=== PATIENT | female | born 1940 | race Caucasian/White ===

== ENCOUNTER 2018-09-17 17:55 | Inpatient (IN) | payer MEDICARE ==
[2018-09-17 18:43] LABS: % BASOPHILS 0.6 % (0.0-2.0); % EOSINOPHILS 2.5 % (0.0-5.0); % LYMPHOCYTES 27.7 % (20.0-50.0); % MONOCYTES 9.2 % (2.0-10.0); EOSINOPHILE ABSOLUTE 0.2 Th/cmm (0.1-0.4); HEMATOCRIT 43.5 % (41.0-60); HEMOGLOBIN 14.4 gm/dL (12-16); LYMPHOCYTE ABSOLUTE 1.7 Th/cmm (1.5-3.0); MEAN CELL VOLUME 88.6 fl (81-100); MEAN CORPUSCULAR HEMOGLOBIN 29.3 pg (27.0-31.0); MEAN PLATELET VOLUME 9.3 fl; MONOCYTE ABSOLUTE 0.6 Th/cmm (0.3-1.0); NEUTROPHILE ABSOLUTE 3.6 Th/cmm (1.8-8.0); PLATELET COUNT 259 Th/cmm (150-400); RED BLOOD COUNT 4.91 Mil/cmm (3.80-5.20); WHITE BLOOD COUNT 6.1 Th/cmm (4.8-10.8)
[2018-09-17 18:59] LABS: INR 1.03 (0.5-1.4); PROTHROMBIN TIME (TEST) 10.7 SECONDS (9.5-11.5)
[2018-09-17 19:02] LABS: ALB/GLOB RATIO 1.7 (1.0-1.8); ALBUMIN 4.3 gm/dL (3.7-5.3); ALKALINE PHOSPHATASE 82 U/L (34-104); ANION GAP 12.5 (7.0-16.0); BILIRUBIN,TOTAL 0.5 mg/dL (0.3-1.0); BUN - UREA NITROGEN 15 mg/dL (7-25); CALCIUM SERUM 9.4 mg/dL (8.6-10.3); CARBON DIOXIDE 25.2 mEq/L (21.0-31.0); CHLORIDE 105 mEq/L (98-107); CREATININE - SERUM 0.8 mg/dL (0.6-1.2); GLUCOSE 101 mg/dL (70-105); POTASSIUM SERUM 3.7 mEq/L (3.5-5.1); SGOT 18 U/L (13-39); SGPT/ALT 14 U/L (7-52); SODIUM SERUM 139 mEq/L (136-145); TOTAL PROTEIN,SERUM 6.8 gm/dL (6.0-8.3)
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
[2018-09-17] MEDS ORDERED: Maalox 30 mL Cup PO PRN (21:51)
[2018-09-17 22:02] VITALS: BP 133/74
[2018-09-17] MEDS ORDERED: Acetaminophen 500 MG TAB PO PRN (22:02)
[2018-09-17 22:33] LABS: CHOLESTEROL 273 mg/dL (<200); HDL -HIGH DENSITY LIPOPROTEIN 48 mg/dL (23-92); TRIGLYCERIDES 159 mg/dL (<150)
--- NOTE | 2018-09-18 08:38 | Diagnostic Imaging Report ---
CHEST X-RAY: AP view INDICATION: Cough COMPARISON: None FINDINGS: Chronic lung changes are noted. Suboptimal lung volumes are noted. No focal consolidation or effusions. Heart is at the upper limits of normal in size. Tortuous aorta is noted. Degenerative changes of the spine are noted. IMPRESSION: Chronic lung changes with no focal consolidation identified. Tortuous aorta.
[2018-09-18] MEDS: Multivitamin Tab PO SCH (10:23)
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
[2018-09-18] MEDS ORDERED: Non-Formulary Item 1 EA (Temazepam [Restoril] 30 MG) PO SCH (21:00)
--- NOTE | 2018-09-18 21:26 | History and Physical ---
History of Present Illness - HPI Chief Complaint: agitation HPI: This is a 78 year old female admitted to geropsych unit for 1 day history of agitation. Vital Signs: Last Vital Signs Temp 97.2 F 09/18/18 06:12 Pulse 111 09/18/18 06:12 Resp 20 09/18/18 12:57 BP 123/68 09/18/18 06:12 Pulse Ox 96 09/18/18 06:12 Past Medical History Other History: dementia Family Medical History - Family Member Mother History Unknown: Yes Ethnicity: Unknown Living Status: Unknown Hx Family Cancer: (Unknown) Hx Family Coronary Artery Disease: (unknwon) Hx Family Congestive Heart Failure: (unknown) Hx Family Hypertension: (unknown) Hx Family Stroke: (unknown) Hx Family Diabetes: (unknown) Hx Family Seizures: (unknwon) Hx Family Dementia: (unknown) Hx Family AIDS: (unknown) Hx Family HIV: No Hx Family COPD: (unknown) Hx Family Hepatitis: (unknown) Hx Family Psychiatric Problems: (unknown) Hx Family Tuberculosis: (unknown) Social History Smoke: No Alcohol: None Drugs: None Lives: Snf - Medications Home Medications: Home Medication Medication Instructions Recorded Type Acetaminophen [Tylenol Extra 500 mg PO Q6HR PRN 09/17/18 History Strength] Alprazolam 0.5 mg PO Q6H PRN 09/17/18 History Citalopram Hydrobromide 20 mg PO HS 09/17/18 History [Citalopram HBr] Docusate Sodium [Colace] 100 mg PO DAILY 09/17/18 History Magnesium Hydroxide [Milk of 30 ml PO Q48H PRN 09/17/18 History Magnesia] QUEtiapine Fumarate [SEROquel] 50 mg PO BID 09/17/18 History Temazepam [Restoril] 30 mg PO HS 09/17/18 History - Allergies Allergies/Adverse Reactions: Allergies Allergy/AdvReac Type Severity Reaction Status Date / Time Penicillins Allergy Verified 09/17/18 18:12 Review of Systems - Review of Systems Constitutional: Report: No Significant Eyes: Report: No Significant Respiratory: Report: No Significant Cardiovascular: Report: No Significant Neurological: Report: No Significant Physical Exam - Physical Exam HEENT: Report: Ears Nose Throat within normal limits Neck: Report: Within normal limits Cardiovascular Systems: Report: +s1/s2 noted, Regular, Rate and Rhythm Respiratory: Report: Breath Sounds are within normal limits Skin: Report: Warm, Dry - Lab Results All Lab Results last 24 hours: Laboratory Results - last 24 hr 09/17/18 18:36 Triglycerides 159 H Cholesterol 273 H LDL Cholesterol Direct 241 H HDL Cholesterol 48 - Assessment Assessment: Current Active Problems Problem Status Onset INCREASED AGITATION AND CONFUSION Acute - Plan Plan: fall precautions continue as per psych
[2018-09-19] MEDS: Multivitamin Tab PO SCH (09:41)
--- NOTE | 2018-09-19 18:01 | Internal Medicine Prog Note ---
Internal Medicine Subjective - Subjective Service Date: 09/19/18 Patient seen and examined:: with staff, chart reviewed Patient is:: awake, cris chair, confused Patient Complaints of:: other (demented.) Per staff patient has:: no adverse event, no episodes of fall, agitated, confused Internal Medicine Objective - Results Result Diagrams: 09/17/18 18:36 09/17/18 18:36 Recent Labs: Laboratory Last Values WBC 6.1 Th/cmm (4.8-10.8) 09/17/18 18:36 RBC 4.91 Mil/cmm (3.80-5.20) 09/17/18 18:36 Hgb 14.4 gm/dL (12-16) 09/17/18 18:36 Hct 43.5 % (41.0-60) 09/17/18 18:36 MCV 88.6 fl (81-100) 09/17/18 18:36 MCH 29.3 pg (27.0-31.0) 09/17/18 18:36 MCHC Differential 33.0 pg (28.0-36.0) 09/17/18 18:36 RDW 13.0 % (11.5-20.0) 09/17/18 18:36 Plt Count 259 Th/cmm (150-400) 09/17/18 18:36 MPV 9.3 fl 09/17/18 18:36 Neutrophils % 60.0 % (40.0-80.0) 09/17/18 18:36 Lymphocytes % 27.7 % (20.0-50.0) 09/17/18 18:36 Monocytes % 9.2 % (2.0-10.0) 09/17/18 18:36 Eosinophils % 2.5 % (0.0-5.0) 09/17/18 18:36 Basophils % 0.6 % (0.0-2.0) 09/17/18 18:36 PT 10.7 SECONDS (9.5-11.5) 09/17/18 18:36 INR 1.03 (0.5-1.4) 09/17/18 18:36 PTT (Actin FS) 28.1 SECONDS (26.0-38.0) 09/17/18 18:36 Sodium 139 mEq/L (136-145) 09/17/18 18:36 Potassium 3.7 mEq/L (3.5-5.1) 09/17/18 18:36 Chloride 105 mEq/L (98-107) 09/17/18 18:36 Carbon Dioxide 25.2 mEq/L (21.0-31.0) 09/17/18 18:36 Anion Gap 12.5 (7.0-16.0) 09/17/18 18:36 BUN 15 mg/dL (7-25) 09/17/18 18:36 Creatinine 0.8 mg/dL (0.6-1.2) 09/17/18 18:36 Est GFR ( Amer) TNP 09/17/18 18:36 Est GFR (Non-Af Amer) TNP 09/17/18 18:36 BUN/Creatinine Ratio 18.8 09/17/18 18:36 Glucose 101 mg/dL (70-105) 09/17/18 18:36 Calcium 9.4 mg/dL (8.6-10.3) 09/17/18 18:36 Total Bilirubin 0.5 mg/dL (0.3-1.0) 09/17/18 18:36 AST 18 U/L (13-39) 09/17/18 18:36 ALT 14 U/L (7-52) 09/17/18 18:36 Alkaline Phosphatase 82 U/L (34-104) 09/17/18 18:36 Total Protein 6.8 gm/dL (6.0-8.3) 09/17/18 18:36 Albumin 4.3 gm/dL (3.7-5.3) 09/17/18 18:36 Globulin 2.5 gm/dL 09/17/18 18:36 Albumin/Globulin Ratio 1.7 (1.0-1.8) 09/17/18 18:36 Triglycerides 159 mg/dL (<150) H 09/17/18 18:36 Cholesterol 273 mg/dL (<200) H 09/17/18 18:36 LDL Cholesterol Direct 241 mg/dL (75-193) H 09/17/18 18:36 HDL Cholesterol 48 mg/dL (23-92) 09/17/18 18:36 TSH 0.37 uIU/ml (0.34-5.60) 09/17/18 18:36 - Physical Exam Vitals and I&O: Vital Signs Temp 98.7 F 09/19/18 14:22 Pulse 89 09/19/18 14:22 Resp 18 09/19/18 14:22 BP 149/81 09/19/18 14:22 Pulse Ox 96 09/19/18 14:22 Intake & Output 09/18/18 09/19/18 09/19/18 18:59 06:59 18:59 Other: # Voids 3 # Bowel Movements 0 Active Medications: Current Medications Acetaminophen (Tylenol Extra Strength) 500 mg PO Q6HR PRN PRN Reason: PAIN Stop: 11/16/18 22:01 Al Hydrox/Mg Hydrox/Simethicone (Maalox) 30 ml PO Q4HR PRN PRN Reason: GI DISTRESS Stop: 11/16/18 21:50 Alprazolam (Xanax) 0.5 mg PO Q6H PRN; Protocol PRN Reason: Anxiety Stop: 11/16/18 22:01 Last Admin: 09/19/18 17:09 Dose: 0.5 mg Citalopram Hydrobromide (Celexa) 20 mg PO HS OZZIE; Protocol Stop: 11/17/18 20:59 Last Admin: 09/18/18 21:00 Dose: 20 mg Docusate Sodium (Colace) 100 mg PO DAILY OZZIE Stop: 11/17/18 08:59 Last Admin: 09/19/18 09:41 Dose: Not Given Multivitamins/Vitamin C (Theragran) 1 tab PO DAILY OZZIE Stop: 11/17/18 08:59 Last Admin: 09/19/18 09:41 Dose: Not Given Quetiapine Fumarate (Seroquel) 50 mg PO BID OZZIE; Protocol Stop: 11/17/18 08:59 Last Admin: 09/19/18 17:09 Dose: 50 mg Temazepam (Restoril) 30 mg PO HS OZZIE; Protocol Stop: 11/17/18 20:59 Last Admin: 09/18/18 21:00 Dose: 30 mg General: weak, demented HEENT: NC/AT, PERRLA Neck: Supple Lungs: CTAB Cardiovascular: RRR, Normal S1 Abdomen: soft, non-tender Extremities: clear Neurological: disorganized, unsteady, other (uses walker to ambulate.) Internal Medicine Assmt/Plan - Assessment Assessment: Current Active Problems Problem Status Onset INCREASED AGITATION AND CONFUSION Acute Psychosis Dementia Agitation - Plan Plan: fall precautions continue as per psych Nutritional Asmnt/Malnutr-PDOC - Dietary Evaluation Malnutrition Findings (Please click <Entered> for more info): see orders
[2018-09-20] MEDS: Multivitamin Tab PO SCH (09:32)
--- NOTE | 2018-09-20 18:04 | Internal Medicine Prog Note ---
Internal Medicine Subjective - Subjective Service Date: 09/20/18 Patient is:: awake, cris chair, confused Patient Complaints of:: other (demented.) Per staff patient has:: no adverse event, no episodes of fall, agitated, confused Internal Medicine Objective - Results Result Diagrams: 09/17/18 18:36 09/17/18 18:36 Recent Labs: Laboratory Last Values WBC 6.1 Th/cmm (4.8-10.8) 09/17/18 18:36 RBC 4.91 Mil/cmm (3.80-5.20) 09/17/18 18:36 Hgb 14.4 gm/dL (12-16) 09/17/18 18:36 Hct 43.5 % (41.0-60) 09/17/18 18:36 MCV 88.6 fl (81-100) 09/17/18 18:36 MCH 29.3 pg (27.0-31.0) 09/17/18 18:36 MCHC Differential 33.0 pg (28.0-36.0) 09/17/18 18:36 RDW 13.0 % (11.5-20.0) 09/17/18 18:36 Plt Count 259 Th/cmm (150-400) 09/17/18 18:36 MPV 9.3 fl 09/17/18 18:36 Neutrophils % 60.0 % (40.0-80.0) 09/17/18 18:36 Lymphocytes % 27.7 % (20.0-50.0) 09/17/18 18:36 Monocytes % 9.2 % (2.0-10.0) 09/17/18 18:36 Eosinophils % 2.5 % (0.0-5.0) 09/17/18 18:36 Basophils % 0.6 % (0.0-2.0) 09/17/18 18:36 PT 10.7 SECONDS (9.5-11.5) 09/17/18 18:36 INR 1.03 (0.5-1.4) 09/17/18 18:36 PTT (Actin FS) 28.1 SECONDS (26.0-38.0) 09/17/18 18:36 Sodium 139 mEq/L (136-145) 09/17/18 18:36 Potassium 3.7 mEq/L (3.5-5.1) 09/17/18 18:36 Chloride 105 mEq/L (98-107) 09/17/18 18:36 Carbon Dioxide 25.2 mEq/L (21.0-31.0) 09/17/18 18:36 Anion Gap 12.5 (7.0-16.0) 09/17/18 18:36 BUN 15 mg/dL (7-25) 09/17/18 18:36 Creatinine 0.8 mg/dL (0.6-1.2) 09/17/18 18:36 Est GFR ( Amer) TNP 09/17/18 18:36 Est GFR (Non-Af Amer) TNP 09/17/18 18:36 BUN/Creatinine Ratio 18.8 09/17/18 18:36 Glucose 101 mg/dL (70-105) 09/17/18 18:36 Calcium 9.4 mg/dL (8.6-10.3) 09/17/18 18:36 Total Bilirubin 0.5 mg/dL (0.3-1.0) 09/17/18 18:36 AST 18 U/L (13-39) 09/17/18 18:36 ALT 14 U/L (7-52) 09/17/18 18:36 Alkaline Phosphatase 82 U/L (34-104) 09/17/18 18:36 Total Protein 6.8 gm/dL (6.0-8.3) 09/17/18 18:36 Albumin 4.3 gm/dL (3.7-5.3) 09/17/18 18:36 Globulin 2.5 gm/dL 09/17/18 18:36 Albumin/Globulin Ratio 1.7 (1.0-1.8) 09/17/18 18:36 Triglycerides 159 mg/dL (<150) H 09/17/18 18:36 Cholesterol 273 mg/dL (<200) H 09/17/18 18:36 LDL Cholesterol Direct 241 mg/dL (75-193) H 09/17/18 18:36 HDL Cholesterol 48 mg/dL (23-92) 09/17/18 18:36 TSH 0.37 uIU/ml (0.34-5.60) 09/17/18 18:36 - Physical Exam Vitals and I&O: Vital Signs Temp 97.7 F 02/28/19 14:10 Pulse 69 09/20/18 14:10 Resp 18 09/20/18 14:10 BP 143/81 09/20/18 14:10 Pulse Ox 69 09/20/18 14:10 Intake & Output 09/19/18 09/20/18 09/20/18 18:59 06:59 18:59 Intake Total 120 Balance 120 Intake: Oral 120 Other: # Voids 2 1 # Bowel Movements 1 0 Active Medications: Current Medications Acetaminophen (Tylenol Extra Strength) 500 mg PO Q6HR PRN PRN Reason: PAIN Stop: 11/16/18 22:01 Al Hydrox/Mg Hydrox/Simethicone (Maalox) 30 ml PO Q4HR PRN PRN Reason: GI DISTRESS Stop: 11/16/18 21:50 Alprazolam (Xanax) 0.5 mg PO Q6H PRN; Protocol PRN Reason: Anxiety Stop: 11/16/18 22:01 Last Admin: 09/19/18 17:09 Dose: 0.5 mg Citalopram Hydrobromide (Celexa) 20 mg PO HS OZZIE; Protocol Stop: 11/17/18 20:59 Last Admin: 09/19/18 20:37 Dose: 20 mg Docusate Sodium (Colace) 100 mg PO DAILY OZZIE Stop: 11/17/18 08:59 Last Admin: 09/20/18 09:32 Dose: Not Given Multivitamins/Vitamin C (Theragran) 1 tab PO DAILY OZZIE Stop: 11/17/18 08:59 Last Admin: 09/20/18 09:32 Dose: Not Given Quetiapine Fumarate (Seroquel) 50 mg PO BID OZZIE; Protocol Stop: 11/17/18 08:59 Last Admin: 09/20/18 16:50 Dose: 50 mg Temazepam (Restoril) 30 mg PO HS OZZIE; Protocol Stop: 11/17/18 20:59 Last Admin: 09/19/18 20:37 Dose: 30 mg General: weak, demented HEENT: NC/AT, PERRLA Neck: Supple Lungs: CTAB Cardiovascular: RRR, Normal S1 Abdomen: soft, non-tender Extremities: clear Neurological: disorganized, unsteady, other (uses walker to ambulate.) Internal Medicine Assmt/Plan - Assessment Assessment: psychosis - Plan Plan: continue current plan of care
[2018-09-21] MEDS: Multivitamin Tab PO SCH (08:51)
--- NOTE | 2018-09-21 15:24 | Internal Medicine Prog Note ---
Internal Medicine Subjective - Subjective Service Date: 09/21/18 Patient seen and examined:: chart reviewed Patient is:: awake, cris chair, confused Patient Complaints of:: other (dis-oriented and demented.) Per staff patient has:: no adverse event, no episodes of fall, agitated, confused Internal Medicine Objective - Results Result Diagrams: 09/17/18 18:36 09/17/18 18:36 Recent Labs: Laboratory Last Values WBC 6.1 Th/cmm (4.8-10.8) 09/17/18 18:36 RBC 4.91 Mil/cmm (3.80-5.20) 09/17/18 18:36 Hgb 14.4 gm/dL (12-16) 09/17/18 18:36 Hct 43.5 % (41.0-60) 09/17/18 18:36 MCV 88.6 fl (81-100) 09/17/18 18:36 MCH 29.3 pg (27.0-31.0) 09/17/18 18:36 MCHC Differential 33.0 pg (28.0-36.0) 09/17/18 18:36 RDW 13.0 % (11.5-20.0) 09/17/18 18:36 Plt Count 259 Th/cmm (150-400) 09/17/18 18:36 MPV 9.3 fl 09/17/18 18:36 Neutrophils % 60.0 % (40.0-80.0) 09/17/18 18:36 Lymphocytes % 27.7 % (20.0-50.0) 09/17/18 18:36 Monocytes % 9.2 % (2.0-10.0) 09/17/18 18:36 Eosinophils % 2.5 % (0.0-5.0) 09/17/18 18:36 Basophils % 0.6 % (0.0-2.0) 09/17/18 18:36 PT 10.7 SECONDS (9.5-11.5) 09/17/18 18:36 INR 1.03 (0.5-1.4) 09/17/18 18:36 PTT (Actin FS) 28.1 SECONDS (26.0-38.0) 09/17/18 18:36 Sodium 139 mEq/L (136-145) 09/17/18 18:36 Potassium 3.7 mEq/L (3.5-5.1) 09/17/18 18:36 Chloride 105 mEq/L (98-107) 09/17/18 18:36 Carbon Dioxide 25.2 mEq/L (21.0-31.0) 09/17/18 18:36 Anion Gap 12.5 (7.0-16.0) 09/17/18 18:36 BUN 15 mg/dL (7-25) 09/17/18 18:36 Creatinine 0.8 mg/dL (0.6-1.2) 09/17/18 18:36 Est GFR ( Amer) TNP 09/17/18 18:36 Est GFR (Non-Af Amer) TNP 09/17/18 18:36 BUN/Creatinine Ratio 18.8 09/17/18 18:36 Glucose 101 mg/dL (70-105) 09/17/18 18:36 Calcium 9.4 mg/dL (8.6-10.3) 09/17/18 18:36 Total Bilirubin 0.5 mg/dL (0.3-1.0) 09/17/18 18:36 AST 18 U/L (13-39) 09/17/18 18:36 ALT 14 U/L (7-52) 09/17/18 18:36 Alkaline Phosphatase 82 U/L (34-104) 09/17/18 18:36 Total Protein 6.8 gm/dL (6.0-8.3) 09/17/18 18:36 Albumin 4.3 gm/dL (3.7-5.3) 09/17/18 18:36 Globulin 2.5 gm/dL 09/17/18 18:36 Albumin/Globulin Ratio 1.7 (1.0-1.8) 09/17/18 18:36 Triglycerides 159 mg/dL (<150) H 09/17/18 18:36 Cholesterol 273 mg/dL (<200) H 09/17/18 18:36 LDL Cholesterol Direct 241 mg/dL (75-193) H 09/17/18 18:36 HDL Cholesterol 48 mg/dL (23-92) 09/17/18 18:36 TSH 0.37 uIU/ml (0.34-5.60) 09/17/18 18:36 - Physical Exam Vitals and I&O: Vital Signs Temp 98.3 F 09/21/18 14:00 Pulse 85 09/21/18 14:00 Resp 18 09/21/18 14:00 BP 141/86 09/21/18 14:00 Pulse Ox 96 09/21/18 06:01 Intake & Output 09/20/18 09/21/18 09/21/18 18:59 06:59 18:59 Intake Total 240 Balance 240 Intake: Oral 240 Other: # Voids 3 2 # Bowel Movements 2 Active Medications: Current Medications Acetaminophen (Tylenol Extra Strength) 500 mg PO Q6HR PRN PRN Reason: PAIN Stop: 11/16/18 22:01 Al Hydrox/Mg Hydrox/Simethicone (Maalox) 30 ml PO Q4HR PRN PRN Reason: GI DISTRESS Stop: 11/16/18 21:50 Alprazolam (Xanax) 0.5 mg PO Q6H PRN; Protocol PRN Reason: Anxiety Stop: 11/16/18 22:01 Last Admin: 09/19/18 17:09 Dose: 0.5 mg Citalopram Hydrobromide (Celexa) 20 mg PO HS [facility]; Protocol Stop: 11/17/18 20:59 Last Admin: 09/20/18 20:37 Dose: 20 mg Docusate Sodium (Colace) 100 mg PO DAILY OZZIE Stop: 11/17/18 08:59 Last Admin: 09/21/18 08:51 Dose: 100 mg Multivitamins/Vitamin C (Theragran) 1 tab PO DAILY OZZIE Stop: 11/17/18 08:59 Last Admin: 09/21/18 08:51 Dose: 1 tab Quetiapine Fumarate (Seroquel) 50 mg PO BID OZZIE; Protocol Stop: 11/17/18 08:59 Last Admin: 09/21/18 08:51 Dose: 50 mg Temazepam (Restoril) 30 mg PO HS OZZIE; Protocol Stop: 11/17/18 20:59 Last Admin: 09/20/18 20:37 Dose: 30 mg General: weak, demented HEENT: NC/AT, PERRLA Neck: Supple Lungs: CTAB Cardiovascular: RRR, Normal S1 Abdomen: soft, non-tender Extremities: clear Neurological: no change, disorganized, unsteady, other (uses walker to ambulate. ) Internal Medicine Assmt/Plan - Assessment Assessment: Current Active Problems Problem Status Onset INCREASED AGITATION AND CONFUSION Acute Psychosis Dementia Agitation - Plan Plan: fall precautions safety precaution continue as per psych Nutritional Asmnt/Malnutr-PDOC - Dietary Evaluation Malnutrition Findings (Please click <Entered> for more info): see orders
[2018-09-22] MEDS: Multivitamin Tab PO SCH (09:22)
--- NOTE | 2018-09-22 13:37 | Progress Notes ---
DATE: 09/22/2018 Case was discussed with staff of the patient, reviewed records. This is a well-known patient. We have admitted her covering for Dr. Rob a few days ago. The patient continues to be confused, continues to be unable to make safe plan for self-care or participate in meaningful conversation, internally preoccupied. Seroquel was increased to 50 mg twice a day. No side effects with the medication, no sedation, no nausea, no extrapyramidal symptoms. We will continue outpatient group therapy, milieu therapy, adjust medication as needed. JOB# [id number]
--- NOTE | 2018-09-22 16:52 | Progress Notes ---
DATE: 09/22/2018 SUBJECTIVE: The patient was seen in her Ashley chair sitting by the hallway having breakfast. The patient is a poor historian due to medical condition. Otherwise, the patient appears to be comfortable, in no acute distress. OBJECTIVE: VITAL SIGNS: Temperature 98.1, heart rate 84, blood pressure 147/83, respirations 18, 95% on room air. HEENT: Head is atraumatic and normocephalic. Eyes: Bilateral conjunctivae are clear. Bilateral pupils are equally round and reactive. NECK: Supple. No JVD. CARDIOVASCULAR: S1 and S2 without murmur. PULMONARY: Clear to auscultation. GASTROINTESTINAL: Soft and nontender without guarding. Positive bowel sounds. MUSCULOSKELETAL: No clubbing. No cyanosis noted. ASSESSMENT: 1. Dementia. 2. Anxiety. 3. Osteoarthritis. PLAN: We will continue to keep the patient in senior mental health unit. We will monitor the patient's condition and behavior. We will put the patient on aspiration precaution and fall precautions. Treatment plans were discussed with the patient's nurse. Treatment plans were discussed with Dr. Paul. JOB# [id number]
--- NOTE | 2018-09-23 07:32 | Progress Notes ---
DATE: 09/19/2018 PSYCHIATRIC PROGRESS NOTE DATE OF SERVICE: 09/19/2018. This is late dictation. I had a problem with my phone. Chart reviewed and the patient interviewed. Also discussed the patient's condition with the staff and reviewed records and labs. The patient is still anxious and the patient is still confused. The patient also still needs lots of redirections. The patient also is still interacting minimally with others. She also is confused and she is still trying to get out of bed and she is still impulsive. She also had difficulty following directions. On the other hand, the patient is not agitated and is cooperative with her treatment and compliant with taking her medications with no side effect of medications. The patient continued to take Seroquel 50 mg twice a day. ASSESSMENT: The patient is still anxious and impulsive. TREATMENT PLAN: Continue to monitor her behavior and her condition closely. Also, continue to work on her impulsivity and agitation. Also, continue Celexa as well as Seroquel same dose and follow up closely. JOB# [id number]
[2018-09-23] MEDS: Multivitamin Tab PO SCH (09:34)
--- NOTE | 2018-09-23 12:45 | Internal Medicine Prog Note ---
Internal Medicine Subjective - Subjective Patient is:: awake, cris chair, confused, other (pt is anxious, impulsive) Patient Complaints of:: other (dis-oriented and demented.) Per staff patient has:: no adverse event, no episodes of fall, agitated, confused Internal Medicine Objective - Results Result Diagrams: 09/17/18 18:36 09/17/18 18:36 Recent Labs: Laboratory Last Values WBC 6.1 Th/cmm (4.8-10.8) 09/17/18 18:36 RBC 4.91 Mil/cmm (3.80-5.20) 09/17/18 18:36 Hgb 14.4 gm/dL (12-16) 09/17/18 18:36 Hct 43.5 % (41.0-60) 09/17/18 18:36 MCV 88.6 fl (81-100) 09/17/18 18:36 MCH 29.3 pg (27.0-31.0) 09/17/18 18:36 MCHC Differential 33.0 pg (28.0-36.0) 09/17/18 18:36 RDW 13.0 % (11.5-20.0) 09/17/18 18:36 Plt Count 259 Th/cmm (150-400) 09/17/18 18:36 MPV 9.3 fl 09/17/18 18:36 Neutrophils % 60.0 % (40.0-80.0) 09/17/18 18:36 Lymphocytes % 27.7 % (20.0-50.0) 09/17/18 18:36 Monocytes % 9.2 % (2.0-10.0) 09/17/18 18:36 Eosinophils % 2.5 % (0.0-5.0) 09/17/18 18:36 Basophils % 0.6 % (0.0-2.0) 09/17/18 18:36 PT 10.7 SECONDS (9.5-11.5) 09/17/18 18:36 INR 1.03 (0.5-1.4) 09/17/18 18:36 PTT (Actin FS) 28.1 SECONDS (26.0-38.0) 09/17/18 18:36 Sodium 139 mEq/L (136-145) 09/17/18 18:36 Potassium 3.7 mEq/L (3.5-5.1) 09/17/18 18:36 Chloride 105 mEq/L (98-107) 09/17/18 18:36 Carbon Dioxide 25.2 mEq/L (21.0-31.0) 09/17/18 18:36 Anion Gap 12.5 (7.0-16.0) 09/17/18 18:36 BUN 15 mg/dL (7-25) 09/17/18 18:36 Creatinine 0.8 mg/dL (0.6-1.2) 09/17/18 18:36 Est GFR ( Amer) TNP 09/17/18 18:36 Est GFR (Non-Af Amer) TNP 09/17/18 18:36 BUN/Creatinine Ratio 18.8 09/17/18 18:36 Glucose 101 mg/dL (70-105) 09/17/18 18:36 Calcium 9.4 mg/dL (8.6-10.3) 09/17/18 18:36 Total Bilirubin 0.5 mg/dL (0.3-1.0) 09/17/18 18:36 AST 18 U/L (13-39) 09/17/18 18:36 ALT 14 U/L (7-52) 09/17/18 18:36 Alkaline Phosphatase 82 U/L (34-104) 09/17/18 18:36 Total Protein 6.8 gm/dL (6.0-8.3) 09/17/18 18:36 Albumin 4.3 gm/dL (3.7-5.3) 09/17/18 18:36 Globulin 2.5 gm/dL 09/17/18 18:36 Albumin/Globulin Ratio 1.7 (1.0-1.8) 09/17/18 18:36 Triglycerides 159 mg/dL (<150) H 09/17/18 18:36 Cholesterol 273 mg/dL (<200) H 09/17/18 18:36 LDL Cholesterol Direct 241 mg/dL (75-193) H 09/17/18 18:36 HDL Cholesterol 48 mg/dL (23-92) 09/17/18 18:36 TSH 0.37 uIU/ml (0.34-5.60) 09/17/18 18:36 - Physical Exam Vitals and I&O: Vital Signs Temp 98 F 09/23/18 06:50 Pulse 65 09/23/18 09:34 Resp 20 09/23/18 06:50 BP 145/79 09/23/18 09:34 Pulse Ox 95 09/23/18 06:50 Intake & Output 09/22/18 09/23/18 09/23/18 18:59 06:59 18:59 Intake Total 1200 240 Balance 1200 240 Weight (lbs) 73.936 kg Intake: Oral 1200 240 Other: # Voids 3 3 # Bowel Movements 0 0 Weight Source Bedscale Active Medications: Current Medications Acetaminophen (Tylenol Extra Strength) 500 mg PO Q6HR PRN PRN Reason: PAIN Stop: 11/16/18 22:01 Al Hydrox/Mg Hydrox/Simethicone (Maalox) 30 ml PO Q4HR PRN PRN Reason: GI DISTRESS Stop: 11/16/18 21:50 Alprazolam (Xanax) 0.5 mg PO Q6H PRN; Protocol PRN Reason: Anxiety Stop: 11/16/18 22:01 Last Admin: 09/19/18 17:09 Dose: 0.5 mg Citalopram Hydrobromide (Celexa) 20 mg PO HS [facility]; Protocol Stop: 11/17/18 20:59 Last Admin: 09/22/18 20:54 Dose: 20 mg Docusate Sodium (Colace) 100 mg PO DAILY [facility] Stop: 11/17/18 08:59 Last Admin: 09/23/18 09:34 Dose: 100 mg Losartan Potassium (Cozaar) 50 mg PO DAILY [facility] Stop: 11/21/18 08:59 Last Admin: 09/23/18 09:34 Dose: 50 mg Multivitamins/Vitamin C (Theragran) 1 tab PO DAILY [facility] Stop: 11/17/18 08:59 Last Admin: 09/23/18 09:34 Dose: 1 tab Quetiapine Fumarate (Seroquel) 50 mg PO BID [facility]; Protocol Stop: 11/17/18 08:59 Last Admin: 09/23/18 09:34 Dose: 50 mg Temazepam (Restoril) 30 mg PO HS [facility]; Protocol Stop: 11/17/18 20:59 Last Admin: 09/22/18 20:54 Dose: 30 mg General: weak, demented HEENT: NC/AT, PERRLA Neck: Supple Lungs: CTAB Cardiovascular: RRR, Normal S1 Abdomen: soft, non-tender Extremities: clear Neurological: no change, disorganized, unsteady, other (uses walker to ambulate. ) Internal Medicine Assmt/Plan - Assessment Assessment: Current Active Problems Problem Status Onset INCREASED AGITATION AND CONFUSION Acute Psychosis Dementia Agitation - Plan Plan: fall precautions safety precaution continue as per psych Nutritional Asmnt/Malnutr-PDOC - Dietary Evaluation Malnutrition Findings (Please click <Entered> for more info): Nutritional Asmnt/Malnutrition Start: 09/21/18 16: 19 Text: Status: Complete Freq: Protocol: Document 09/21/18 16:19 LCHENG (Rec: 09/21/18 16:33 LCHENG [email or web address]) Nutritional Asmnt/Malnutrition Patient General Information Nutritional Screening Moderate Risk Diagnosis increase agitation Pertinent Medical Hx/Surgical Hx dementia Subjective Information Pt seen in cris chair, confused, not abhishek to participate in conversation. Current Diet Order/ Nutrition Support regular Pertinent Medications theragran, colace, seroquel Pertinent Labs 09/17 reviewed Nutritional Hx/Data Height 1.73 m Height (Calculated Centimeters) 172.7 Current Weight (lbs) 73.936 kg Weight (Calculated Kilograms) 73.9 Weight (Calculated Grams) 39992.6 [place] Body Weight 140 Body Mass Index (BMI) 24.7 Weight Status Approriate GI Symptoms GI Symptoms None Last BM 09/20 Difficult in: None Skin Integrity/Comment: intact Current %PO Fair (50-74%) Estimated Nutritional Goals BEE in Kcals: Using Current wt Calories/Kcals/Kg 25-30 Kcals Calculated 6267-9845 Protein: Using Current wt Protein g/k.8-1 Protein Calculated 59-74 Fluid: ml 1850-2220ml (1ml/kcal) Nutritional Problem No current Nutrition Prob Problem N/A Malnutrition Alert Is there a minimum of two criteria No selected? Query Text:Check all the applicable criteria. A minimum of two criteria are recommended for diagnosis of either severe or non-severe malnutrition. Malnutrition Related to Morbid Obesity Malnutrition related to morbid obesity No Intervention/Recommendation Comments 1. Continue with regular diet as ordered. 2. Monitor PO intake, wt, labs and skin integrity 3. F/U as low risk in 7 days Expected Outcomes/Goals Expected Outcomes/Goals 1. PO intake to meet at least 75% of nutritional needs. 2. Wt stability, skin to remain intact, labs to approach WNL.
--- NOTE | 2018-09-23 17:33 | Progress Notes ---
DATE: 09/21/2018 SUBJECTIVE: Chart reviewed and the patient interviewed. Also discussed the patient's condition with the staff and reviewed records and labs. The patient continued to be confused and the patient is still forgetful. The patient also is still restless and still has difficulty with her mood. The patient also still gets easily agitated and still having the upsets and she is still impulsive. On the other hand, the patient continued to comply with taking Seroquel and Celexa with no side effects. ASSESSMENT: The patient is still confused and still have episodes of agitation and needs close monitoring. TREATMENT PLAN: Continue Seroquel and Celexa at same dose. Also, continue to work on her impulsivity and impulse control and continue to follow up. JOB# [id number]
--- NOTE | 2018-09-23 18:13 | Progress Notes ---
DATE: 09/20/2018 PSYCHIATRIC PROGRESS NOTE DATE: 09/20/2018 SUBJECTIVE: Chart reviewed and the patient interviewed, also discussed the patient's condition with the staff and reviewed records and labs. The patient continued to be confused and she is still having episodes of feeling restless and needs lots of redirections. The patient also still seems to be preoccupied and responding. Otherwise, the patient continues to comply with taking medications and no side effects of medications. She also still has episodes of anger and irritability. On the other hand, the patient is compliant with taking medications with no side effects of medications. The patient continued to take Celexa and Seroquel. ASSESSMENT: The patient is still confused and episodes of agitation. TREATMENT PLAN: Continue to monitor behavior and condition closely. Also, continue adjusting psychotropic medications and followup. [facility]# [id number]
--- NOTE | 2018-09-23 21:49 | Progress Notes ---
DATE: 09/23/2018 Case was discussed with staff of the patient, reviewed records. The patient continues to be confused. Continues to be easily agitated, irritable. Continues to have poor insight. Unable to make safe plan for self-care, demented, confused, needing redirection. She is compliant with the medication with no side effects, no sedation, no nausea, no extrapyramidal symptoms. We will continue to work with the patient in group therapy, milieu therapy, adjust medication as needed. JOB# [id number]
[2018-09-24] MEDS: Multivitamin Tab PO SCH (09:13)
--- NOTE | 2018-09-24 09:45 | Internal Medicine Prog Note ---
Internal Medicine Subjective - Subjective Service Date: 09/24/18 Patient seen and examined:: chart reviewed Patient is:: awake, cris chair, talking, agitated, confused, other (pt continues to have poor insight.) Patient Complaints of:: other (continues to be dis-oriented and demented.) Per staff patient has:: no adverse event, no episodes of fall, agitated, confused Internal Medicine Objective - Results Result Diagrams: 09/17/18 18:36 09/17/18 18:36 Recent Labs: Laboratory Last Values WBC 6.1 Th/cmm (4.8-10.8) 09/17/18 18:36 RBC 4.91 Mil/cmm (3.80-5.20) 09/17/18 18:36 Hgb 14.4 gm/dL (12-16) 09/17/18 18:36 Hct 43.5 % (41.0-60) 09/17/18 18:36 MCV 88.6 fl (81-100) 09/17/18 18:36 MCH 29.3 pg (27.0-31.0) 09/17/18 18:36 MCHC Differential 33.0 pg (28.0-36.0) 09/17/18 18:36 RDW 13.0 % (11.5-20.0) 09/17/18 18:36 Plt Count 259 Th/cmm (150-400) 09/17/18 18:36 MPV 9.3 fl 09/17/18 18:36 Neutrophils % 60.0 % (40.0-80.0) 09/17/18 18:36 Lymphocytes % 27.7 % (20.0-50.0) 09/17/18 18:36 Monocytes % 9.2 % (2.0-10.0) 09/17/18 18:36 Eosinophils % 2.5 % (0.0-5.0) 09/17/18 18:36 Basophils % 0.6 % (0.0-2.0) 09/17/18 18:36 PT 10.7 SECONDS (9.5-11.5) 09/17/18 18:36 INR 1.03 (0.5-1.4) 09/17/18 18:36 PTT (Actin FS) 28.1 SECONDS (26.0-38.0) 09/17/18 18:36 Sodium 139 mEq/L (136-145) 09/17/18 18:36 Potassium 3.7 mEq/L (3.5-5.1) 09/17/18 18:36 Chloride 105 mEq/L (98-107) 09/17/18 18:36 Carbon Dioxide 25.2 mEq/L (21.0-31.0) 09/17/18 18:36 Anion Gap 12.5 (7.0-16.0) 09/17/18 18:36 BUN 15 mg/dL (7-25) 09/17/18 18:36 Creatinine 0.8 mg/dL (0.6-1.2) 09/17/18 18:36 Est GFR ( Amer) TNP 09/17/18 18:36 Est GFR (Non-Af Amer) TNP 09/17/18 18:36 BUN/Creatinine Ratio 18.8 09/17/18 18:36 Glucose 101 mg/dL (70-105) 09/17/18 18:36 Calcium 9.4 mg/dL (8.6-10.3) 09/17/18 18:36 Total Bilirubin 0.5 mg/dL (0.3-1.0) 09/17/18 18:36 AST 18 U/L (13-39) 09/17/18 18:36 ALT 14 U/L (7-52) 09/17/18 18:36 Alkaline Phosphatase 82 U/L (34-104) 09/17/18 18:36 Total Protein 6.8 gm/dL (6.0-8.3) 09/17/18 18:36 Albumin 4.3 gm/dL (3.7-5.3) 09/17/18 18:36 Globulin 2.5 gm/dL 09/17/18 18:36 Albumin/Globulin Ratio 1.7 (1.0-1.8) 09/17/18 18:36 Triglycerides 159 mg/dL (<150) H 09/17/18 18:36 Cholesterol 273 mg/dL (<200) H 09/17/18 18:36 LDL Cholesterol Direct 241 mg/dL (75-193) H 09/17/18 18:36 HDL Cholesterol 48 mg/dL (23-92) 09/17/18 18:36 TSH 0.37 uIU/ml (0.34-5.60) 09/17/18 18:36 - Physical Exam Vitals and I&O: Vital Signs Temp 98 F 09/24/18 06:52 Pulse 65 09/24/18 06:52 Resp 20 09/24/18 06:52 BP 145/75 09/24/18 06:52 Pulse Ox 95 09/24/18 06:52 Intake & Output 09/23/18 09/24/18 09/24/18 18:59 06:59 18:59 Intake Total 800 240 Balance 800 240 Weight (lbs) 73.936 kg Intake: Oral 800 240 Other: # Voids 3 3 # Bowel Movements 0 0 Weight Source Bedscale Active Medications: Current Medications Acetaminophen (Tylenol Extra Strength) 500 mg PO Q6HR PRN PRN Reason: PAIN Stop: 11/16/18 22:01 Al Hydrox/Mg Hydrox/Simethicone (Maalox) 30 ml PO Q4HR PRN PRN Reason: GI DISTRESS Stop: 11/16/18 21:50 Alprazolam (Xanax) 0.5 mg PO Q6H PRN; Protocol PRN Reason: Anxiety Stop: 11/16/18 22:01 Last Admin: 09/19/18 17:09 Dose: 0.5 mg Citalopram Hydrobromide (Celexa) 20 mg PO HS [facility]; Protocol Stop: 11/17/18 20:59 Last Admin: 09/23/18 20:58 Dose: 20 mg Docusate Sodium (Colace) 100 mg PO DAILY [facility] Stop: 11/17/18 08:59 Last Admin: 09/24/18 09:13 Dose: 100 mg Losartan Potassium (Cozaar) 50 mg PO DAILY [facility] Stop: 11/21/18 08:59 Last Admin: 09/24/18 09:13 Dose: Not Given Multivitamins/Vitamin C (Theragran) 1 tab PO DAILY [facility] Stop: 11/17/18 08:59 Last Admin: 09/24/18 09:13 Dose: Not Given Quetiapine Fumarate (Seroquel) 50 mg PO BID [facility]; Protocol Stop: 11/17/18 08:59 Last Admin: 09/24/18 09:13 Dose: 50 mg Temazepam (Restoril) 30 mg PO HS [facility]; Protocol Stop: 11/17/18 20:59 Last Admin: 09/23/18 20:58 Dose: 30 mg General: weak, demented HEENT: NC/AT, PERRLA Neck: Supple Lungs: CTAB Cardiovascular: RRR, Normal S1 Abdomen: soft, non-tender Extremities: clear Neurological: no change, disorganized, unsteady, other (uses walker to ambulate. ) Internal Medicine Assmt/Plan - Assessment Assessment: Current Active Problems Problem Status Onset INCREASED AGITATION AND CONFUSION Acute Psychosis Dementia Agitation - Plan Plan: fall precautions safety precaution continue as per psych Nutritional Asmnt/Malnutr-PDOC - Dietary Evaluation Malnutrition Findings (Please click <Entered> for more info): Nutritional Asmnt/Malnutrition Start: 09/21/18 16: 19 Text: Status: Complete Freq: Protocol: Document 09/21/18 16:19 LCHENG (Rec: 09/21/18 16:33 LCRANDALLG [email or web address]) Nutritional Asmnt/Malnutrition Patient General Information Nutritional Screening Moderate Risk Diagnosis increase agitation Pertinent Medical Hx/Surgical Hx dementia Subjective Information Pt seen in cris chair, confused, not abhishek to participate in conversation. Current Diet Order/ Nutrition Support regular Pertinent Medications theragran, colace, seroquel Pertinent Labs 09/17 reviewed Nutritional Hx/Data Height 1.73 m Height (Calculated Centimeters) 172.7 Current Weight (lbs) 73.936 kg Weight (Calculated Kilograms) 73.9 Weight (Calculated Grams) 82369.6 [place] Body Weight 140 Body Mass Index (BMI) 24.7 Weight Status Approriate GI Symptoms GI Symptoms None Last BM 09/20 Difficult in: None Skin Integrity/Comment: intact Current %PO Fair (50-74%) Estimated Nutritional Goals BEE in Kcals: Using Current wt Calories/Kcals/Kg 25-30 Kcals Calculated 7281-1223 Protein: Using Current wt Protein g/k.8-1 Protein Calculated 59-74 Fluid: ml 1850-2220ml (1ml/kcal) Nutritional Problem No current Nutrition Prob Problem N/A Malnutrition Alert Is there a minimum of two criteria No selected? Query Text:Check all the applicable criteria. A minimum of two criteria are recommended for diagnosis of either severe or non-severe malnutrition. Malnutrition Related to Morbid Obesity Malnutrition related to morbid obesity No Intervention/Recommendation Comments 1. Continue with regular diet as ordered. 2. Monitor PO intake, wt, labs and skin integrity 3. F/U as low risk in 7 days Expected Outcomes/Goals Expected Outcomes/Goals 1. PO intake to meet at least 75% of nutritional needs. 2. Wt stability, skin to remain intact, labs to approach WNL.
--- NOTE | 2018-09-24 21:24 | Discharge Summary ---
DATE OF DISCHARGE: 09/24/2018 DATE OF DISCHARGE: 09/24/2018. PHYSICIAN: Dr. Rob. FINAL DIAGNOSIS/PRIMARY DIAGNOSIS: Unspecified psychosis. SECONDARY DIAGNOSES: Dementia, moderate to severe, with psychotic features. REASON FOR HOSPITALIZATION: The patient was admitted to the hospital because of confusion and agitation and difficulty following directions in [facility] where she was living. HOSPITAL COURSE: The patient continued to be confused and agitated and needed redirections. The patient started on Celexa in a dose of 20 mg at bedtime and Seroquel 50 mg twice a day. The patient's affect is brighter. The patient was less irritable and less agitated and the patient was returned to [facility]. Physical exam of the patient was basically within normal. She had no major medical problems while in the hospital. AFTER DISCHARGE PLANS: The patient will return to [facility] with plans for outpatient treatment there. EXPECTED OUTCOME AFTER DISCHARGE: Fair if the patient continues her outpatient treatment and follow up with discharge plans. [facility]# [id number]
[2018-09-25] MEDS: Multivitamin Tab PO SCH (09:10)
--- NOTE | 2018-09-25 14:34 | Internal Medicine Prog Note ---
Internal Medicine Subjective - Subjective Service Date: 09/25/18 Patient is:: awake, cris chair, talking, agitated, confused, other (pt continues to have poor insight.) Patient Complaints of:: other (continues to be dis-oriented and demented.) Per staff patient has:: no adverse event, no episodes of fall, agitated, confused Internal Medicine Objective - Results Result Diagrams: 09/17/18 18:36 09/17/18 18:36 Recent Labs: Laboratory Last Values WBC 6.1 Th/cmm (4.8-10.8) 09/17/18 18:36 RBC 4.91 Mil/cmm (3.80-5.20) 09/17/18 18:36 Hgb 14.4 gm/dL (12-16) 09/17/18 18:36 Hct 43.5 % (41.0-60) 09/17/18 18:36 MCV 88.6 fl (81-100) 09/17/18 18:36 MCH 29.3 pg (27.0-31.0) 09/17/18 18:36 MCHC Differential 33.0 pg (28.0-36.0) 09/17/18 18:36 RDW 13.0 % (11.5-20.0) 09/17/18 18:36 Plt Count 259 Th/cmm (150-400) 09/17/18 18:36 MPV 9.3 fl 09/17/18 18:36 Neutrophils % 60.0 % (40.0-80.0) 09/17/18 18:36 Lymphocytes % 27.7 % (20.0-50.0) 09/17/18 18:36 Monocytes % 9.2 % (2.0-10.0) 09/17/18 18:36 Eosinophils % 2.5 % (0.0-5.0) 09/17/18 18:36 Basophils % 0.6 % (0.0-2.0) 09/17/18 18:36 PT 10.7 SECONDS (9.5-11.5) 09/17/18 18:36 INR 1.03 (0.5-1.4) 09/17/18 18:36 PTT (Actin FS) 28.1 SECONDS (26.0-38.0) 09/17/18 18:36 Sodium 139 mEq/L (136-145) 09/17/18 18:36 Potassium 3.7 mEq/L (3.5-5.1) 09/17/18 18:36 Chloride 105 mEq/L (98-107) 09/17/18 18:36 Carbon Dioxide 25.2 mEq/L (21.0-31.0) 09/17/18 18:36 Anion Gap 12.5 (7.0-16.0) 09/17/18 18:36 BUN 15 mg/dL (7-25) 09/17/18 18:36 Creatinine 0.8 mg/dL (0.6-1.2) 09/17/18 18:36 Est GFR ( Amer) TNP 09/17/18 18:36 Est GFR (Non-Af Amer) TNP 09/17/18 18:36 BUN/Creatinine Ratio 18.8 09/17/18 18:36 Glucose 101 mg/dL (70-105) 09/17/18 18:36 Calcium 9.4 mg/dL (8.6-10.3) 09/17/18 18:36 Total Bilirubin 0.5 mg/dL (0.3-1.0) 09/17/18 18:36 AST 18 U/L (13-39) 09/17/18 18:36 ALT 14 U/L (7-52) 09/17/18 18:36 Alkaline Phosphatase 82 U/L (34-104) 09/17/18 18:36 Total Protein 6.8 gm/dL (6.0-8.3) 09/17/18 18:36 Albumin 4.3 gm/dL (3.7-5.3) 09/17/18 18:36 Globulin 2.5 gm/dL 09/17/18 18:36 Albumin/Globulin Ratio 1.7 (1.0-1.8) 09/17/18 18:36 Triglycerides 159 mg/dL (<150) H 09/17/18 18:36 Cholesterol 273 mg/dL (<200) H 09/17/18 18:36 LDL Cholesterol Direct 241 mg/dL (75-193) H 09/17/18 18:36 HDL Cholesterol 48 mg/dL (23-92) 09/17/18 18:36 TSH 0.37 uIU/ml (0.34-5.60) 09/17/18 18:36 - Physical Exam Vitals and I&O: Vital Signs Temp 97.9 F 09/25/18 05:36 Pulse 65 09/25/18 09:10 Resp 20 09/25/18 05:36 BP 137/79 09/25/18 09:10 Pulse Ox 96 09/25/18 05:36 Intake & Output 09/24/18 09/25/18 09/25/18 18:59 06:59 18:59 Intake Total 240 Balance 240 Weight (lbs) 163 lb Intake: Oral 240 Other: # Voids 3 # Bowel Movements 0 Weight Source Bedscale Active Medications: Current Medications Acetaminophen (Tylenol Extra Strength) 500 mg PO Q6HR PRN PRN Reason: PAIN Stop: 11/16/18 22:01 Al Hydrox/Mg Hydrox/Simethicone (Maalox) 30 ml PO Q4HR PRN PRN Reason: GI DISTRESS Stop: 11/16/18 21:50 Alprazolam (Xanax) 0.5 mg PO Q6H PRN; Protocol PRN Reason: Anxiety Stop: 11/16/18 22:01 Last Admin: 09/25/18 00:15 Dose: 0.5 mg Citalopram Hydrobromide (Celexa) 20 mg PO HS [facility]; Protocol Stop: 11/17/18 20:59 Last Admin: 09/24/18 21:20 Dose: 20 mg Docusate Sodium (Colace) 100 mg PO DAILY [facility] Stop: 11/17/18 08:59 Last Admin: 09/25/18 09:10 Dose: 100 mg Losartan Potassium (Cozaar) 50 mg PO DAILY [facility] Stop: 11/21/18 08:59 Last Admin: 09/25/18 09:10 Dose: 50 mg Multivitamins/Vitamin C (Theragran) 1 tab PO DAILY [facility] Stop: 11/17/18 08:59 Last Admin: 09/25/18 09:10 Dose: 1 tab Quetiapine Fumarate (Seroquel) 50 mg PO BID [facility]; Protocol Stop: 11/17/18 08:59 Last Admin: 09/25/18 09:10 Dose: 50 mg Temazepam (Restoril) 30 mg PO HS [facility]; Protocol Stop: 11/17/18 20:59 Last Admin: 03/04/19 21:20 Dose: 30 mg General: weak, demented HEENT: NC/AT, PERRLA Neck: Supple Lungs: CTAB Cardiovascular: RRR, Normal S1 Abdomen: soft, non-tender Extremities: clear Neurological: no change, disorganized, unsteady, other (uses walker to ambulate. ) Internal Medicine Assmt/Plan - Assessment Assessment: psychosis - Plan Plan: continue current plan of care Nutritional Asmnt/Malnutr-PDOC - Dietary Evaluation Malnutrition Findings (Please click <Entered> for more info): Nutritional Asmnt/Malnutrition Start: 09/21/18 16: 19 Text: Status: Complete Freq: Protocol: Document 09/21/18 16:19 LCHENG (Rec: 09/21/18 16:33 LCHENG [email or web address]) Nutritional Asmnt/Malnutrition Patient General Information Nutritional Screening Moderate Risk Diagnosis increase agitation Pertinent Medical Hx/Surgical Hx dementia Subjective Information Pt seen in cris chair, confused, not abhishek to participate in conversation. Current Diet Order/ Nutrition Support regular Pertinent Medications theragran, colace, seroquel Pertinent Labs 09/17 reviewed Nutritional Hx/Data Height 5 ft 8 in Height (Calculated Centimeters) 172.7 Current Weight (lbs) 163 lb Weight (Calculated Kilograms) 73.9 Weight (Calculated Grams) 12300.6 [place] Body Weight 140 Body Mass Index (BMI) 24.7 Weight Status Approriate GI Symptoms GI Symptoms None Last BM 09/20 Difficult in: None Skin Integrity/Comment: intact Current %PO Fair (50-74%) Estimated Nutritional Goals BEE in Kcals: Using Current wt Calories/Kcals/Kg 25-30 Kcals Calculated 4993-6151 Protein: Using Current wt Protein g/k.8-1 Protein Calculated 59-74 Fluid: ml 1850-2220ml (1ml/kcal) Nutritional Problem No current Nutrition Prob Problem N/A Malnutrition Alert Is there a minimum of two criteria No selected? Query Text:Check all the applicable criteria. A minimum of two criteria are recommended for diagnosis of either severe or non-severe malnutrition. Malnutrition Related to Morbid Obesity Malnutrition related to morbid obesity No Intervention/Recommendation Comments 1. Continue with regular diet as ordered. 2. Monitor PO intake, wt, labs and skin integrity 3. F/U as low risk in 7 days Expected Outcomes/Goals Expected Outcomes/Goals 1. PO intake to meet at least 75% of nutritional needs. 2. Wt stability, skin to remain intact, labs to approach WNL.
--- NOTE | 2018-09-26 08:24 | Progress Notes ---
DATE: 09/24/2018 The patient is supposed to go to [facility] today and hopefully the discharge will be happening. I put the discharge order for the patient. The patient is calmer and less agitated and less irritable and the patient was supposed to be discharged today. I am dictating this report because the patient did not leave, so it is late dictation for yesterday to comply with dictations. I did dictate discharge summary yesterday, but the patient did not leave. No change in her condition and plan. Hopefully, the patient will be discharged on 09/25. JOB# [id number]
== END 2018-09-25 18:45 | DRG 885 ==
LOC: ER 17:55 → GERO2 20:19
PROVIDERS: ADMIT Psychiatry & Neurology Psychiatry; ATTEND Psychiatry & Neurology Psychiatry
DX: F29 Unspecified psychosis not due to a substance or known physiological condition (principal); F02.81 Dementia in other diseases classified elsewhere, unspecified severity, with behavioral disturbance; G30.9 Alzheimer's disease, unspecified; F17.210 Nicotine dependence, cigarettes, uncomplicated; F41.9 Anxiety disorder, unspecified; M19.90 Unspecified osteoarthritis, unspecified site
CPT/HCPCS: 36415-UA; 71045-TC; 80053-TC; 80061-TC; 83036-90; 84443-TC; 85025-TC; 85610-TC; 85730-TC; 93005; G0410; Z7610